=== PATIENT | female | born 2000 | race Caucasian/White ===

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

== ENCOUNTER 2021-07-27 03:04 | Emergency (ER) | payer OTHER ==
[~2021-07-27] VITALS: Ht 167.6 cm; Wt 77.3 kg
[2021-07-27] MEDS ORDERED: CLEO300C2 PO (05:58)
[2021-07-27] MEDS ORDERED: KETOROLAC 60MG 2ML VIAL IM ONE (06:00)
[2021-07-27] MEDS ORDERED: CLINDAMYCIN 150MG CAPSULE PO ONE (06:00)
[2021-07-27 06:37] VITALS: BP 137/89
== END 2021-07-27 06:39 | disposition home or self-care (01) ==
LOC: M ED 03:04
DX: K08.89 Other specified disorders of teeth and supporting structures (principal); F17.290 Nicotine dependence, other tobacco product, uncomplicated
CPT/HCPCS: 96372; 99283; J1885

== ENCOUNTER 2024-05-30 07:46 | Emergency (ER) | payer OTHER ==
[~2024-05-30] VITALS: Ht 167.6 cm; Wt 106.6 kg
[~2024-05-30 07:46] MED LIST: CLEO300C2 PO
[2024-05-30 07:48] VITALS: BP 145/74; TEMP 97.3; O2SAT 99
[2024-05-30] MEDS ORDERED: ACET-910 PO (07:50)
== END 2024-05-30 08:38 | disposition left against medical advice (07) ==
LOC: M ED 07:46
DX: Z53.21 Procedure and treatment not carried out due to patient leaving prior to being seen by health care provider (principal)